=== PATIENT | female | born 1990 | race Caucasian/White ===

== ENCOUNTER → 2020-01-05 | Outpatient (CLI) | payer OTHER ==
[~2020-01-05] MED LIST: FERRO-TIME325 MG PO; HEATHER0.35 MG PO; IBU600 MG PO; METHERGINE0.2 MG/TAB PO; MOTRIN 800800 MG/TAB PO; PERCOCET 325 MG1 TA2 PO; PRENATAL 191 TAB PO; PRENATAL TABLET PO; SLOW FE142 MG PO
== END ==
LOC: ZCOL.LAB 08:15
DX: Z20.828 Contact with and (suspected) exposure to other viral communicable diseases (principal)

== ENCOUNTER 2020-01-06 18:23 | Inpatient (IN) | payer OTHER ==
[2020-01-06] VITALS (12 sets, daily range): BP systolic 107–121; BP diastolic 59–78; PULSE 83–108; TEMP 97.8–98.3
[~2020-01-06] VITALS: Ht 165.1 cm; Wt 69.5 kg
[~2020-01-06 18:23] MED LIST changes: -FERRO-TIME325 MG PO; -PRENATAL TABLET PO
[2020-01-06] MEDS ORDERED: PRENATAL TABLET PO (19:06)
[2020-01-06] MEDS ORDERED: FERRO-TIME325 MG PO (19:07)
[2020-01-06 20:11] LABS: BASO % 0.3 % (0.0-2.0); EOS # 0.1 (0.0-0.7); EOS % 0.7 % (0-4.0); GRAN # 10.1 (1.4-6.5); HEMOGLOBIN 12.5 g/dl (12.5-16.0); LYMPH # 2.5 (1.2-3.4); LYMPH % 18.3 % (20.0-51.0); MEAN CELL VOLUME 101 fl (80.0-100.0); MEAN CORPUSCULAR HEMOGLOBIN 35 pg (27.0-31.0); MEAN CORPUSCULAR HGB CONC 35 g/dl (33.0-37.0); MEAN PLATELET VOLUME 9.9 fl (7.4-10.4); MONO % 7.3 % (1.7-9.3); PLATELET COUNT 260 K/mm3 (130-400); RED BLOOD COUNT 3.55 M/mm3 (4.10-5.30)
[2020-01-06 20:12] LABS: HEMATOCRIT 35.9 % (37.0-47.0)
[2020-01-07] VITALS (28 sets, daily range): BP systolic 104–153; BP diastolic 55–81; PULSE 86–146; TEMP 98.1–9809
--- NOTE | 2020-01-07 00:10 | NUR ---
To edge of bed for epidural. Becki MORTGAGE SPECIALIST into room for epidural see aneshtsia record.
--- NOTE | 2020-01-07 00:30 | NUR ---
EFM tracing maternal heart rate during epidural placement.
--- NOTE | 2020-01-07 01:00 | NUR ---
Pt to back for SVE and nichols placement. FHT's to 100's,BP 77/45 0114 FHt's to 70's, to LL. Dr Raphael into room, LR to bolus, to RL, SVE by Dr Raphael /-1. O2, Ephedrine IV by Edgardo CAMPA. To knee chest. 0124 FHT's to 110's, Maternal heart 130's, to Wedge L. BP 102/558.
--- NOTE | 2020-01-07 01:55 | NUR ---
FHT's with early decelerations to 110's. SVE as noted.
--- NOTE | 2020-01-07 02:05 | NUR ---
SVE by Dr Raphael as noted. Pushing instructions given. 0212 of male infant through nuchal and body cord by Dr Raphael.
--- NOTE | 2020-01-07 02:15 | NUR ---
0215 Placenta 'piece' delivers.Pitocin gtt to bolus rate. more placenta delivers, heavy flow. Bimanual exam by Dr Raphael, yields clots and pieces, large flow continues. [address] Raphael continues with massage, clot retrieval, flow contiues heavy 0229 Cytotech 800mcg placed rectally by Dr Raphael. Pitocin bolus continues, flow continue very heavy intermittent clots with contiues tory; massage. 0231 Flow continues heavy, massage continues now by this RN as Dr leaves room. 0236 Dr Raphael back into room. Assesses bleeding, continues heavy flow despte continued massage. O2 @ 8l/mask [address] Raphael, no fragments or tissues retrieved. 0241 Dr Raphael [address] Bakri, fluid instilled 60cc x 2 pt's pulse 130 0248 Additional 60cc to Bakri, total now 180 in. Bleeding continues heavy 0250 Additional 60cc to Bakri, total now 240 in. No slow in bleeding. 0255 60cc to Bakri, 300 total in, Dr Raphael continues assessing, bleeding. Oozing around Bakri, nichols bag connected to Bakri. BP 93/52 P151. Hespan 500 started by Anesthesia with pressure bag, Pitocin gtt bolus continues. PT states "I'm not feeling very good." 0306 113/64, p 144. out to L&D desk. 0309 Lab in for T&C 117/67, P 151 0315 Bakri collection bag @100cc, oozing blood out of vagina. 96/[address] Raphael back into room, to assess Bakri. Dr Raphael finds Bakri in vaginal vault ballon intact and still inflated. Bakri removed. Flow moderate, methergine IM, 2nd bag of 500cclr with 30units pitocin started at bolus rate. flow moderate , no clots, fundus firm, 0345 Spo2 84%, P156, shaking, cold. states "my chest tickles and my fingers too." 0354 RParker ELECTRONIC TRANSACTION IMPLEMENTER starts 2nd IV site to R hand. 0356 NS started to R hand site in preparation for blood transfusio. 0400 BP 92/52 P 144. flow small, no clots, fundus firm 0405 2 grams Ancef in 20mls NS mixed by Becki CAMPA and started via pump, secondary port t o L site. 0410 BP 85/50 P 149, SpO2 86-90, O2 continues 0415 PRBC's started to R site, with pressure bag. Becki CAMPA. O2 continues, bolus continue tp L site. Dr Raphael continues in room. flow small, fundus firm no clots. 0418 Pt states "I don't feel good, my tongue feels thick and tingly" BP 96/64, P169, SpO2 96%. flow small, fundus firm 0419 R IV site tense and warm to touch. Blood transfusion stopped. Rhand IV site dc'd. IV fluid to L iv site dc'd. Blood transfusion switched to L IV site. Dr Raphael continues in room. flow small. 0430 pt states "I feel better, at least my tongue does." BP 116/66 P 155 Spo2 91. flow small, no clots, fundus firm 0435 1st unit PRB's in. 0450 109/57 P162 0500 101/51 p 150, Spo2 100% . 0530 BP 108/58 p144. 0600 flow scant, no clots. 113/72 P 136 SpO2 99%. 2nd unit infused. 0630 BP 109/68 P 146, SpO2 100%.
[2020-01-07 03:23] LABS: MEAN CELL VOLUME 105 fl (80.0-100.0); MEAN CORPUSCULAR HGB CONC 34 g/dl (33.0-37.0); MEAN PLATELET VOLUME 9.8 fl (7.4-10.4); RED BLOOD COUNT 2.14 M/mm3 (4.10-5.30); REDCELL DISTRIBUTION WIDTH-CV 13.5 % (11.5-14.5)
[2020-01-07 03:24] LABS: HEMATOCRIT 22.4 % (37.0-47.0); HEMOGLOBIN 7.6 g/dl (12.5-16.0); MEAN CORPUSCULAR HEMOGLOBIN 36 pg (27.0-31.0)
[2020-01-07 03:25] LABS: PLATELET COUNT 155 K/mm3 (130-400)
--- NOTE | 2020-01-07 04:45 | NUR ---
Pericare completed, bed together. Pt states "I do feel a little better"
--- NOTE | 2020-01-07 06:30 | NUR ---
0630- Bedside shift report with Claudia Hong RN. Fundus firm and at the U, bleeding small, golf ball sized clot noted on towel, clean towel replaced under Pt. Pt complaining of feeling "weird", not able to focus on object. Pt reassured.
--- NOTE | 2020-01-07 08:11 | NUR ---
0811- Dr Kinsey at bedside. Discusses labs and status. Questions answered. SCDs on per MD request. Labs ordered.
[2020-01-07 09:04] LABS: ALBUMIN 2.1 gm/dL (3.5-5.0); BILIRUBIN,TOTAL 3.7 mg/dL (0.0-1.0); CALCIUM 7.4 mg/dL (8.4-10.2); CREATININE, serum 0.92 (0.52-1.25); POTASSIUM 4.5 mmol/L (3.4-5.0); TOTAL PROTEIN 4.2 gm/dL (6.4-8.2)
[2020-01-07 09:05] LABS: HEMATOCRIT 24.3 % (37.0-47.0); HEMOGLOBIN 8.5 g/dl (12.5-16.0)
--- NOTE | 2020-01-07 11:50 | NUR ---
1150- Pericare completed, clean chux under Pt, ice pack to perineum. Pt tolerated well.
[2020-01-07 17:46] LABS: BASO % 0.2 % (0.0-2.0); GRAN # 13.8 (1.4-6.5); GRAN % 83.4 % (42.2-75.2); HEMATOCRIT 25.5 % (37.0-47.0); HEMOGLOBIN 8.9 g/dl (12.5-16.0); LYMPH # 1.3 (1.2-3.4); LYMPH % 7.7 % (20.0-51.0); MEAN CELL VOLUME 90 fl (80.0-100.0); MEAN CORPUSCULAR HEMOGLOBIN 31 pg (27.0-31.0); MEAN CORPUSCULAR HGB CONC 35 g/dl (33.0-37.0); MEAN PLATELET VOLUME 9.4 fl (7.4-10.4); MONO # 1.4 (0.1-0.6); MONO % 8.2 % (1.7-9.3); PLATELET COUNT 103 K/mm3 (130-400); RED BLOOD COUNT 2.85 M/mm3 (4.10-5.30); REDCELL DISTRIBUTION WIDTH-CV 16.9 % (11.5-14.5)
[2020-01-08 00:25] VITALS: BP 119/59; PULSE 83; TEMP 98
[2020-01-08 04:00] VITALS: BP 123/64; PULSE 78; TEMP 98.4
[2020-01-08 07:00] VITALS: BP 124/71; PULSE 72; TEMP 98.7
[2020-01-08 08:06] LABS: BASO # 0.1 (0.0-0.2); BASO % 0.3 % (0.0-2.0); EOS % 0.1 % (0-4.0); GRAN # 14.1 (1.4-6.5); GRAN % 80.8 % (42.2-75.2); LYMPH # 1.9 (1.2-3.4); LYMPH % 10.7 % (20.0-51.0); MEAN CELL VOLUME 91 fl (80.0-100.0); MEAN CORPUSCULAR HGB CONC 35 g/dl (33.0-37.0); MEAN PLATELET VOLUME 9.7 fl (7.4-10.4); MONO # 1.3 (0.1-0.6); MONO % 7.3 % (1.7-9.3); PLATELET COUNT 112 K/mm3 (130-400); RED BLOOD COUNT 2.72 M/mm3 (4.10-5.30); REDCELL DISTRIBUTION WIDTH-CV 17.7 % (11.5-14.5)
[2020-01-08 08:10] LABS: HEMATOCRIT 24.8 % (37.0-47.0); HEMOGLOBIN 8.6 g/dl (12.5-16.0); MEAN CORPUSCULAR HEMOGLOBIN 32 pg (27.0-31.0)
--- NOTE | 2020-01-08 10:16 | NUR ---
Initial visit; Family thanked Reel System Operator for offering congratulations and God's blessings for the of their son.
--- NOTE | 2020-01-08 10:35 | NUR ---
PT DRINKING WATER. AMBULATES TO BATHROOM WITHOUT DIFFICULTY. PERICARE PROVIDED. PT NOT DIZZY WITH AMBULATING. IV CONVERTED TO INT. IV FLUIDS DISCONTINUED. HALE CATHETER REMAINS IN PLACE. NO EXCESSIVE BLEEDING WITH AMBULATING.
--- NOTE | 2020-01-08 11:50 | NUR ---
PT WANTING TO GET BACK IN BED AFTER SITTING IN CHAIR FOR OVER AN HOUR. BACK TO BED. AMBULATES WITHOUT DIFFICULTY. FUNDUS REMAINS FIRM. MINIMAL BLEEDING ON PAULINA PAD. HALE CATHETER REMOVED.
[2020-01-08 20:00] VITALS: BP 124/70; PULSE 85; TEMP 97.9
[2020-01-08 22:00] VITALS: BP 129/75; PULSE 71; TEMP 98.3
--- NOTE | 2020-01-08 22:00 | NUR ---
2200 C/O FEELING SOME SL DISCOMFORT WHEN BREATHS OUT. NOT CONSTANT BUT FEELS IT EVERY NOW AND THEN. VS DONE. PULSE OX 99%. LUNG SOUNDS CLEAR. PT AFFRAID SHE HAS A BLOOD CLOT IN LUNGS. REASSURED.
[2020-01-09 03:00] VITALS: BP 122/74; PULSE 65; TEMP 98
[2020-01-09 07:18] LABS: MEAN CELL VOLUME 93 fl (80.0-100.0); MEAN CORPUSCULAR HGB CONC 34 g/dl (33.0-37.0); MEAN PLATELET VOLUME 9.7 fl (7.4-10.4); PLATELET COUNT 135 K/mm3 (130-400); RED BLOOD COUNT 2.44 M/mm3 (4.10-5.30); REDCELL DISTRIBUTION WIDTH-CV 17.2 % (11.5-14.5)
[2020-01-09 07:20] LABS: HEMATOCRIT 22.6 % (37.0-47.0); HEMOGLOBIN 7.7 g/dl (12.5-16.0); MEAN CORPUSCULAR HEMOGLOBIN 32 pg (27.0-31.0)
[2020-01-09 08:55] VITALS: BP 123/74; PULSE 74; TEMP 98
== END 2020-01-09 15:05 | disposition home or self-care (01) | DRG 768 ==
LOC: LDRO 18:23 → LDR 19:06 → OB 01-07 20:30
PROVIDERS: ADMIT Obstetrics & Gynecology
PROC: 10E0XZZ Delivery of Products of Conception, External Approach (ICD-10-PCS; principal; 2020-01-07)
PROC: 0W3R7ZZ Control Bleeding in Genitourinary Tract, Via Natural or Artificial Opening (ICD-10-PCS; 2020-01-07)
PROC: 0KQM0ZZ Repair Perineum Muscle, Open Approach (ICD-10-PCS; 2020-01-07)
DX: O62.1 Secondary uterine inertia (principal); Z37.0 Single live birth; O72.1 Other immediate postpartum hemorrhage; O70.1 Second degree perineal laceration during delivery; O90.81 Anemia of the puerperium; K21.9 Gastro-esophageal reflux disease without esophagitis; O99.63 Diseases of the digestive system complicating the puerperium; D64.9 Anemia, unspecified; Z3A.39 39 weeks gestation of pregnancy
CPT/HCPCS: J0690; J1940; J2210; J2270; J2400; J2550; J2590; J2795; J7030; J7050; J7120; P9016